=== PATIENT | male | born 1985 | race Caucasian/White ===

== ENCOUNTER 2017-06-12 11:06 | Emergency (ER) | payer SELFPAY ==
[~2017-06-12] VITALS: Ht 180.3 cm; Wt 88.5 kg
[2017-06-12 11:09] VITALS: Ht 180.3 cm; Wt 88.5 kg
[2017-06-12] MEDS ORDERED: BEN25 PO (11:38)
[2017-06-12] MEDS ORDERED: PRED20TA PO (11:38)
[2017-06-12] MEDS ORDERED: CLOT30CR24 TOP (11:39)
[2017-06-12] MEDS ORDERED: FAMO-96 PO (11:39)
--- NOTE | 2017-06-12 12:15 | ERD ---
ER Documentation Chief Complaint Date/Time DATE: 06/12/17 TIME: 12:06 Chief Complaint left sided neck diffuse rash x2days/left foot rash 05/30 HPI Patient is a 31-year-old male who presents to the emergency department for concerns of a rash to his left neck and upper chest as well as feet. Patient states 1 week ago he was hiking in [place] barefoot through the forest and waterfalls. Patient states that the rash is itchy in nature. Patient states that he is unsure if he has a fungal infection on his feet given that he wore wet soaks for hours. Patient has been using a fungal cream. Patient denies any lip swelling, tongue swelling, difficulty breathing, nausea, vomiting or LOC. Patient denies any new foods, creams, lotions or medications. ROS All systems reviewed and are negative except as per history of present illness. Medications Home Meds Active Scripts Clotrimazole* (Clotrimazole* AF) 1% - 30 Gm Cream.gm., 1 APPLIC TOP BID for 7 Days, TUB Prov:LAVERNE ACEVEDO PA-C 06/12/17 Famotidine* (Pepcid*) 20 Mg Tablet, 20 MG PO BID for 5 Days, TAB Prov:LAVERNE ACEVEDO PA-C 06/12/17 Diphenhydramine Hcl* (Benadryl*) 25 Mg Cap, 25 MG PO Q6, #30 CAP Prov:LAVERNE ACEVEDO PA-C 06/12/17 Prednisone* (Prednisone*) 20 Mg Tab, 40 MG PO DAILY for 5 Days, TAB Prov:LAVERNE ACEVEDO PA-C 06/12/17 Allergies Allergies: Coded Allergies: No Known Allergy (Unverified , 06/12/17) Physical Exam Vitals Vital Signs Date Time Temp Pulse Resp B/P Pulse Ox O2 Delivery O2 Flow Rate FiO2 06/12/17 11:09 98.3 108 18 117/27 98 Physical Exam GENERAL: Well-developed, well-nourished male. Appears in no acute distress. Speaking in full sentences. HEAD: Normocephalic, atraumatic. EYES: Pupils are equally reactive bilaterally. EOMs grossly intact. No conjunctival erythema. ENT: Moist mucous membranes. No uvula deviation. No kissing tonsils. No throat swelling. No lip swelling, no tongue swelling. Able to swallow secretions without difficulty. NECK: Supple. No meningismus. Normal range of motion of the neck. LUNGS: Clear to auscultation bilaterally. No rhonchi, wheezing, rales or coarse breath sounds. HEART: Regular rate and rhythm. No murmurs, rubs or gallops. EXTREMITIES: Equal pulses bilaterally. No peripheral clubbing, cyanosis or edema. No unilateral leg swelling. NEUROLOGIC: Alert and oriented. Moving all four extremities without any difficulty. Normal speech. Steady gait. SKIN: Normal color. Warm and dry. Erythematous plaque-like lesions noted to the patient's left upper chest and neck. Patient's feet appear erythematous. No swelling or warmth. Procedures/MDM MEDICAL DECISION MAKING: This is a 31-year-old male presents with a rash to his upper left chest as well as his feet. Vital signs were reviewed. Patient was afebrile. Skin exam revealed findings consistent with hives as well as possible fungal infection. Given these findings, the patients presentation is most consistent with irritant contact dermatitis and fungal infection. I have a much lower clinical concern for necrotizing fasciitis, sepsis, gangrene, Ryne-Manuel syndrome, toxic epidural necrolysis, abscess, cellulitis, herpes zoster, anaphylaxis, respiratory compromise, dermatitis, fungal infection, insect bites. PRESCRIPTIONS: Prednisone, Benadryl, Pepcid, Clotrimazole cream DISCHARGE: At this time, patient is stable for discharge and outpatient management. I have advised the patient to avoid any new products, creams or possible allergens. I have advised the patient to avoid scratching the lesions. I have instructed the patient to follow-up with his/her primary care physician in 1-2 days. If symptoms persist, patient may need to see a assistant project engineer for further examinations and testing. I have instructed the patient to promptly return to the ER at any time for any new or worsening symptoms including increased pain, fever, redness, swelling, warmth, difficulty breathing or vomiting. The patient and/or family expressed understanding of and agreement with this plan. All questions were answered. Home care instructions were provided. Departure Diagnosis: Primary Impression: Rash Additional Impressions: Hives Fungal infection Condition: Stable Patient Instructions: Hives Referrals: ANGELA LOZADA MD,MICHAEL POTTER,CYNTHIA RODRIGUEZ,JOE MANTILLA [facility] YOU HAVE RECEIVED A MEDICAL SCREENING EXAM AND THE RESULTS INDICATE THAT YOU DO NOT HAVE A CONDITION THAT REQUIRES URGENT TREATMENT IN THE EMERGENCY DEPARTMENT. FURTHER EVALUATION AND TREATMENT OF YOUR CONDITION CAN WAIT UNTIL YOU ARE SEEN IN YOUR DOCTORS OFFICE WITHIN THE NEXT 1-2 DAYS. IT IS YOUR RESPONSIBILITY TO MAKE AN APPOINTMENT FOR FOLOW-UP CARE. IF YOU HAVE A PRIMARY DOCTOR --you should call your primary doctor and schedule an appointment IF YOU DO NOT HAVE A PRIMARY DOCTOR YOU CAN CALL OUR PHYSICIAN REFERRAL HOTLINE AT IF YOU CAN NOT AFFORD TO SEE A PHYSICIAN YOU CAN CHOSE FROM THE FOLLOWING [facility] [address] [facility]. [facility] [address] [facility] [address] [facility] [facility] [address] [facility]. [facility] [address] [facility]. [facility] [address] [facility] [facility] YOU HAVE RECEIVED A MEDICAL SCREENING EXAM AND THE RESULTS INDICATE THAT YOU DO NOT HAVE A CONDITION THAT REQUIRES URGENT TREATMENT IN THE EMERGENCY DEPARTMENT. FURTHER EVALUATION AND TREATMENT OF YOUR CONDITION CAN WAIT UNTIL YOU ARE SEEN IN YOUR DOCTORS OFFICE WITHIN THE NEXT 1-2 DAYS. IT IS YOUR RESPONSIBILITY TO MAKE AN APPOINTMENT FOR FOLOW-UP CARE. IF YOU HAVE A PRIMARY DOCTOR --you should call your primary doctor and schedule and appointment IF YOU DO NOT HAVE A PRIMARY DOCTOR YOU CAN CALL OUR PHYSICIAN REFERRAL HOTLINE AT . IF YOU CAN NOT AFFORD TO SEE A PHYSICIAN YOU CAN CHOSE FROM THE FOLLOWING [facility] INSTITUTIONS: [facility] [address] [place] [address] [facility] [address] [place] [address] [facility] [address] [place] [address] Additional Instructions: Call your primary care doctor TOMORROW for an appointment during the next 1-2 days.See the doctor sooner or return here if your condition worsens before your appointment time. Take medication as prescribed. If symptoms persist you may need to follow-up with a assistant project engineer. LAVERNE ACEVEDO PA-C Jun 12, 2017 12:15 LAVERNE ACEVEDO PA-C Jun 12, 2017 12:15
== END 2017-06-12 12:23 | disposition home or self-care (01) ==
LOC: E/R 11:06 → FTE 12:23
DX: R21 Rash and other nonspecific skin eruption (principal); L50.9 Urticaria, unspecified; B49 Unspecified mycosis
CPT/HCPCS: 99283